=== PATIENT | female | born 1940 | race Caucasian/White ===

== ENCOUNTER 2019-08-30 09:06 | Day surgery (SDC) | payer MEDICARE, BC ==
[2019-08-26 15:24] LABS: BASOPHILS % (AUTO) 0.3 % (0-1); EOSINOPHILS # (AUTO) 0.1 X10'3 (0-0.9); MONOCYTES # (AUTO) 0.4 X10'3 (0-0.9); NEUTROPHILS # (AUTO) 2.8 X10'3 (1.8-7.7); PRE OP PLATELET COUNT 153 X10'3 (140-440)
[2019-08-26 15:25] LABS: LYMPHOCYTES % (AUTO) 60.3 % (21-51); MEAN CORPUSCULAR HEMOGLOBIN 32.8 PG (27.0-31.0); MEAN CORPUSCULAR HGB CONC 34.1 g/dL (33.0-36.5); MEAN CORPUSCULAR VOLUME 96.1 FL (78-98); MEAN PLATELET VOLUME 7.4 FL (7.4-10.4); NEUTROPHILS % (AUTO) 33.4 % (42-75); PRE OP HEMATOCRIT 34.9 % (35.0-45.0); PRE OP HEMOGLOBIN 11.9 g/dL (12.0-16.0); RED BLOOD COUNT 3.64 X10'6 (4.20-5.60); RED CELL DISTRIBUTION WIDTH 14.6 % (11.5-14.5)
[2019-08-26 15:41] LABS: ALBUMIN 4.1 G/DL (3.4-5.0); ALBUMIN/GLOBULIN RATIO 1.1 (1.1-1.5); ALKALINE PHOSPHATASE 85 IU/L (46-116); BLOOD UREA NITROGEN 23 MG/DL (7-18); BUN/CREATININE RATIO 19.3 (6.6-38.0); CALCIUM 8.8 MG/DL (8.5-10.1); CHLORIDE 106 MMOL/L (99-107); CREATININE 1.19 MG/DL (0.40-0.90); PRE OP ALT 27 U/L (30-65); PRE OP ANION GAP 10 (8-16); PRE OP AST 26 U/L (10-37); PRE OP BILIRUB, TOTAL 0.3 MG/DL (0.0-1.0); PRE OP GLUCOSE 95 MG/DL (70-104); PRE OP POTASSIUM 4.5 MMOL/L (3.4-5.1); PRE OP SODIUM 143 MMOL/L (135-145); TOTAL CARBON DIOXIDE 26.7 MMOL/L (24-32); TOTAL PROTEIN 7.7 G/DL (6.4-8.2); eGFR 44 ML/MIN
[2019-08-26 16:12] LABS: PLATELET ESTIMATE NORMAL; TOTAL CELLS COUNTED 100
[2019-08-30] VITALS (12 sets, daily range): BP systolic 138–162; BP diastolic 70–83
[~2019-08-30] VITALS: Ht 157.5 cm; Wt 84.6 kg
[~2019-08-30 09:06] MED LIST: BUPIVACAINE liposomal/PF 13.3 MG/ML vial IM ONE; BUPIVAcaine/PF 2.5 mg/ml (0.25%) 30ml vial ONE; BUPIVAcaine/PF 2.5mg/ml (0.25%) 10ml vial ONE; GABA-532 PO; HYDR-3972 PO; LIDOcaine 1% 30ml preserv. free vial ONE; cefazolin/dext.iso 2gm/50ml 50 ML IV ONE; famotidine 20mg tablet PO ONE; ringers solution, lacted 1,000 ML IV SCH
[2019-08-30] MEDS ORDERED: LIDOcaine 1% (10mg/ml) 2ml vial ONE (10:05)
[2019-08-30] MEDS ORDERED: ringers solution, lacted 1,000 ML IV SCH (12:56)
[2019-08-30] MEDS ORDERED: ondansetron/PF 4mg/2ml inj IV PRN (13:00)
[2019-08-30] MEDS ORDERED: labetalol 20mg/4ml (5mg/ml) syringe IV PRN (13:00)
[2019-08-30] MEDS ORDERED: morphine 2 MG/ML inj. syringe IV PRN (13:00)
[2019-08-30] MEDS ORDERED: enalaprilat dihydrate 2.5mg/2ml vial IV PRN (13:00)
[2019-08-30] MEDS ORDERED: fentaNYL/PF 50MCG/1 ML 2ML syringe IV PRN ×2 (13:00)
[2019-08-30] MEDS ORDERED: midazolam 2 mg/2 ml injection ONE (13:46)
[2019-08-30] MEDS ORDERED: fentaNYL/PF 50MCG/1 ML 2ML syringe ONE (13:46)
[2019-08-30] MEDS ORDERED: rocuronium 10mg/ml inj IV ONE (13:47)
[2019-08-30] MEDS ORDERED: LIDOcaine 2% (20mg/ml) 5ml vial ONE (13:47)
[2019-08-30] MEDS ORDERED: ondansetron/PF 4mg/2ml inj ONE (13:47)
[2019-08-30] MEDS ORDERED: dexamethasone sod phosphate 4mg/ml inj. ONE (13:47)
[2019-08-30] MEDS ORDERED: propofol inj 20 ML IV ONE (13:47)
[2019-08-30] MEDS ORDERED: labetalol 20mg/4ml (5mg/ml) syringe IV ONE (14:00)
[2019-08-30] MEDS ORDERED: HYDROcodone/acetaminophen 5mg/325mg tablet PO PRN (14:50)
--- NOTE | 2019-08-30 14:53 | NUR ---
Received from OR via [facility], accompanied by Anesthesiologist DR MARTE and report given by Anesthesiologist. PT AWAKE, C/O PAIN, ABDOMINAL AND CHRONIC BACK PAIN, ABDOMEN W/4 LAP SITES W/BANDAIDS CDI. PT GIVEN PAIN MEDICATION. Addendum: 08/30/19 at 1559 by Heaven Starkey RN Amended: Links added.
[2019-08-30] MEDS: morphine 4 MG/ML inj SYRINge IV PRN ×2 (15:00→15:19)
--- NOTE | 2019-08-30 16:53 | NUR ---
D/C INSTRUCTIONS GIVEN AND GONE OVER W/PT AND PTS SISTER WHOM VERBALIZE UNDERSTANDING, PT D/CD TO HOME VIA W/C TO PRIVATE VEHICLE W/O INCIDENT. Addendum: 08/30/19 at 1748 by Heaven Starkey RN Amended: Links added.
== END 2019-08-30 16:53 | disposition home or self-care (01) ==
LOC: PAS 09:06
PROVIDERS: ATTEND Surgery
DX: K76.89 Other specified diseases of liver (principal); G89.29 Other chronic pain; G47.30 Sleep apnea, unspecified; N18.3 Chronic kidney disease, stage 3 (moderate); M19.90 Unspecified osteoarthritis, unspecified site; Z79.899 Other long term (current) drug therapy; Z96.653 Presence of artificial knee joint, bilateral; Z96.649 Presence of unspecified artificial hip joint; Z90.710 Acquired absence of both cervix and uterus; Z87.891 Personal history of nicotine dependence; Z82.61 Family history of arthritis; Z82.5 Family history of asthma and other chronic lower respiratory diseases; Z83.3 Family history of diabetes mellitus; Z80.9 Family history of malignant neoplasm, unspecified
CPT/HCPCS: 36415; 47379; 80053; 82948; 85025; C9290; J1100; J2001; J2250; J2270; J2405; J2704; J3010; J3490; J7120; 88305; 93005; A4215; A4618; A7000